=== PATIENT | female | born 1965 | race Hispanic/Latino ===

== ENCOUNTER 2017-01-10 19:22 | Emergency (ER) | payer OTHER ==
[~2017-01-10] VITALS: Ht 147.3 cm; Wt 83.1 kg
[2017-01-10 19:27] VITALS: BP 127/69; PULSE 109; RESP 18; O2SAT 99
--- NOTE | 2017-01-10 20:59 | ED.REPORT ---
HPI-General Illness Date of Service January 10, 2017 ED Provider: Frantz Rebollar MD 51 y/o with a hx of DM and HTN presents to the ED with multiple complaints, onset yesterday. The pt had a pituitary tumor removed on 01/03. She states she felt fine when she was discharged 6 days ago. Yesterday, she began experiencing severe headache (frontal lobe), neck pain, bilateral earache and throat pain. The pt also reports a fever of 100 degrees, climbing to 101.9 degrees, then called the nurse line and was referred to the ED. She states she used saline solution to clear her nose and removed a very small clot after she slightly blew her nose. The pt states the pain in her throat is the worst, exacerbated with swallowing. The pt rates her headache 8/10 which worsens with flexion of the neck.She also complains of eye pain upon palpation. Denies facial swelling. The pt took a Tylenol 6 hours ago and an Oxycodone 2 hours ago. Nursing Notes Stated Complaint: HEAD/THROAT PAIN,FEVER Chief Complaint: General Complaint Nursing Notes Reviewed: Yes (Ideal Binary not reconciled) Allergies: Coded Allergies: No Known Allergies (Unverified , 01/10/17) General Time Seen by MD: 20:58 Chief Complaint Headache Hx Obtained From: Patient Arrived By: Walk-in Sudden in Onset?: Yes Onset Occurred: Yesterday Symptom Duration: Since onset Location: : Head Quality: Painful Radiation: : Does not radiate Severity: Current: Moderate Severity: Maximum: Severe Recent Healthcare: Recent doctor visit Similar Sx Previous: No Past Medical History Past Medical History Notes: Neurosurgeon Dr. Paz ([facility]) Neuro research aide DR. 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 Physical Exam Vital Signs Vital Signs Date Time Temp Pulse Resp B/P Pulse Ox O2 Delivery O2 Flow Rate FiO2 01/10/17 19:27 38.2 109 18 127/69 99 Room Air Initial VS: Reviewed, Vital signs abnormal (fever) Cardiovascular: Regular rate & rhythm, Heart sounds normal, Intact distal pulses Abdomen / GI: Soft, Non-tender Extremities: Vascular intact, Neuro intact, No swelling, No tenderness Skin: Warm, Dry, No cyanosis General/Constitutional: Awake, Alert, Not toxic appearing Fatigue Not clinically septic Head / Eyes: Atraumatic, Normocephalic, PERRL Pt is wearing an eye patch due to diplopia. ENT: Atraumatic, Tympanic membs NL, Nose exam NL Nose: Negative: Discharge nasal bloody, Discharge nasal clear Trace eythema in the throat without exudate. Neck: Atraumatic, Full range of motion, No adenopathy Respiratory / Chest: Atraumatic, Breath sounds NL, Breath sounds = bilat, No respiratory distress, No rales, No rhonchi Neurologic: Oriented X3, Speech NL, No motor deficits, No sensory deficits Worse headache with neck flexion. Interpretation & Diagnostics Lab Results Interpretation Result Diagram: 01/10/17212901/10/172129 Test 01/10/17 21:30 01/10/17 22:29 White Blood Count 14.7th/mm3 (3.8-10.1) Red Blood Count 4.43mil/mm3 (3.90-5.20) Hemoglobin 12.5g/dL (12.0-15.6) Hematocrit 36.0% (35.0-46.0) Mean Corpuscular Volume 81.3fL (81-100) Mean Corpuscular Hemoglobin 28.2pg (27.0-35.0) Mean Corpuscular Hemoglobin Concent 34.7% (32.0-37.0) Red Cell Distribution Width 13.6% (12.3-15.4) Platelet Count 437bil/L (150-400) Neutrophils (%) (Auto) 79.7% (40-74) Lymphocytes (%) (Auto) 11.1% (14-46) Monocytes (%) (Auto) 7.1% (4-12) Eosinophils (%) (Auto) 1.7% (0-5) Basophils (%) (Auto) 0.1% (0-3) Sodium Level 139mEq/L (134-144) Potassium Level 4.3mEq/L (3.5-5.2) Chloride Level 97mEq/L (97-108) Carbon Dioxide Level 26mmol/L (18-29) Blood Urea Nitrogen 9mg/dL (6-24) Creatinine 0.34mg/dL (0.57-1.00) Estimat Glomerular Filtration Rate 293mL/min (>59) Glucose Level 166mg/dL (60-99) Lactic Acid Level 1.7mmol/L (0.4-2.0) Calcium Level 10.1mg/dL (8.5-10.1) Total Bilirubin 0.4mg/dL (0.0-1.2) Aspartate Amino Transf (AST/SGOT) 51U/L (0-50) Alanine Aminotransferase (ALT/SGPT) 59U/L (0-32) Alkaline Phosphatase 97U/L (25-150) Total Protein 8.6g/dL (6.4-8.4) Albumin 4.5g/dL (3.4-5.0) Urine Color Yellow (YELLOW) Urine Appearance Clear (CLEAR,HAZY) Urine pH 6.5 (5.0-8.0) Urine Specific [place] 1.005 (1.003-1.035) Urine Protein Negativemg/dL (NEG,TRACE) Urine Glucose (UA) Negativemg/dL (NEGATIVE) Urine Ketones Negativemg/dL (NEGATIVE) Urine Occult Blood Negative (NEGATIVE) Urine Nitrite Negative (NEGATIVE) Urine Bilirubin Negative (NEGATIVE) Urine Urobilinogen Normalmg/dL (NORMAL) Urine Leukocyte Esterase Negative (NEGATIVE) Urine RBC 0-2/hpf (0-2) Urine WBC 0-5/hpf (0-5) Urine Epithelial Cells Moderate/hpf (NONE-MOD) Urine Crystals None seen (NONE SEEN) Urine Bacteria Few/hpf (NONE-FEW) Urine Hyaline Casts None/lpf (NONE) Urine Granular Casts None seen (NONE SEEN) Urine Waxy Casts None seen (NONE SEEN) Urine Red Blood Cell Casts None seen (NONE SEEN) Urine White Blood Cell Casts None seen (NONE SEEN) Urine Mucus None seen (None Seen) Urine Trichomonas None seen (NONE SEEN) Urine Yeast None (NONE SEEN) Urinalysis Comment None Urine Culture Reflexed Not indicated Lab Results Interpretation: CBC moderate leukocytosis CMP normal including normal sodium, potassium Blood cultures 2 pending Strep negative UA negative Re-Eval/Medical Decision Med Decision/Clinical Course This is a 51-year-old female's one week status post trans-nasal/sinus removal of a pituitary adenoma at the [facility] he now presents with a fever, sore throat, and mild pressure headache and trace neck stiffness. She has low-grade fever, but does not appear toxic or severely ill. She has not had any drainage from the nose, the headache is not positional, she does not have lisy or definite meningismus. Her pharynx appears normal without lisy exudate or pathology. Voice is normal. She has no cervical adenopathy. Blood work was obtained given she is 1 week postop. I discussed the case with the [facility] on-call neurosurgeon. He reviewed the case and indicates that the type procedure she has does not really penetrate the CSF, she will be extremely low risk for meningitis-such that imaging and/or LP would be indicated only if there is a strong clinical suspicion, which there is not. The patient was observed for a number of hours and in fact felt better with supportive therapy. I discussed options-and given the current scenario the recommendations from neurosurgery is conservative management-empiric anabolic Selwyn recommended this time. Patient's couple discharged home with the understanding if she develops new, worsening progressive symptoms she will see her headache is worsening, she reveals no other symptoms really are U for meningismus her a postop complication she return directly to the emergency department. She and her partner entirely comfortable with this. She does have requested she has been given oxycodone for pain control at home and as previously found hydrocodone that works better for her, since receiving a prepack of hydrocodone for use. She is discharged in improved condition. Source of Hx: Old records Time of Eval: 23:40 Re-Evaluation/Progress Note: Rechecked pt. Discussed lab results and diagnosis. Informed the pt Dr. Ward recommends observation. She understands and agrees with the plan to discharge post observation. All questions addressed. Consultation : Consulted With: Neurology Call Returned at: 23:35 Hematology Oncology Consultant: Agrees with eval, Agrees with plan Note: Consulted Dr. Ward at . He reviewed the operation note and states there is low risk of meningitis. Imaging is not needed. Recommends the pt be observed and maybe discharged if she looks well. Differential Diagnosis: Positive: Diabetes mellitus, Negative: Abdominal pain, Acute coronary syndrome, Allergies, Neutropenia, Pneumonia, Seizure disorder Counseled Regarding: Diagnosis, Lab results, Need for follow-up, When/why to return to ED Discharge & Departure Primary Impression: Fever Fever type: unspecified Qualified Code: R50.9 - Fever, unspecified Additional Impression: Pharyngitis Pharyngitis/tonsillitis etiology: unspecified etiology Qualified Code: J02.9 - Acute pharyngitis, unspecified Disposition: Home Discharge Condition All VS Reviewed: Yes Additional Instructions: 1. A dangerous cause of the fever was not identified. We do not appreciate signs of a surgical infection at this time, and I discussed her case with the on -call surgeon [facility]. The procedure had his extremely low risk for meningitis, and additional imaging and lumbar puncture not indicated at this time. 2. A viral infection remains quite likely is the source of the symptoms. 3. Take hydrocodone/APAP 12/18/2024 one to 2 tabs up to every 4 hours for pain/ fever. Note this contains Tylenol, as well as a narcotic. You can use it instead of the oxycodone as you have indicated it works better for you. 4. Drink plenty of fluids and rest. 5. Additionally I recommended taking ibuprofen 400 mg 3 times a day for the next couple of days. 6. We expect symptoms to improve over the next few days. If they are not improving, if instead you have worsening symptoms-you need to return to the emergency department. 7. We did draw blood culture today and will call you if anything turns up in the medicine takes several days for results. You can call us at [phone] at any time for results. Referrals: Rody Andino (PCP) Scribe Attestation Portions of this note were transcribed by Filipe Crump. I, , personally performed the history, physical exam and medical decision-making;I reviewed and confirmed the accuracy of the information in the transcribed note. Signed by Leila Elise. 01/10/17 23:56 copies to: Rody Andino Matthew F MD January 10, 2017 20:59 Filipe Crump January 10, 2017 21:10
[2017-01-10] MEDS ORDERED: HYDROmorphone 0.5 mg/0.5 mL iSecure Syringe IVPUSH PRN (21:10)
[2017-01-10] MEDS ORDERED: Ondansetron 2 mg/mL 2 mL Inj IVPUSH ONE (21:10)
[2017-01-10 21:50] LABS: BASOPHILS % (AUTO) 0.1 % (0-3); EOSINOPHILS % (AUTO) 1.7 % (0-5); MONOCYTES % (AUTO) 7.1 % (4-12); Mean Corpuscular Hemoglobin 28.2 pg (27.0-35.0); Mean Corpuscular Volume 81.3 fL (81-100); NEUTROPHILS % (AUTO) 79.7 % (40-74); Platelet Count 437 bil/L (150-400)
[2017-01-10 22:39] LABS: APPEARANCE,URINE CLEAR (CLEAR,HAZY); COLOR,URINE YELLOW (YELLOW); OCCULT BLOOD,URINE NEGATIVE (NEGATIVE); PH,URINE 6.5 (5.0-8.0); UROBILINOGEN,URINE NORMAL (NORMAL)
[2017-01-10] MEDS ORDERED: _HYDROcodone/APAP 5-325 mg Tablet PO PRN (23:55)
[2017-01-11 00:18] VITALS: BP 131/80; PULSE 98; RESP 16; O2SAT 99
[2017-01-11 00:33] VITALS: BP 131/80; PULSE 98; RESP 16; O2SAT 99
== END 2017-01-11 00:33 | disposition home or self-care (01) ==
LOC: SED 19:22
DX: R50.9 Fever, unspecified (principal); J02.9 Acute pharyngitis, unspecified; M54.2 Cervicalgia; H92.03 Otalgia, bilateral; H57.10 Ocular pain, unspecified eye; E11.9 Type 2 diabetes mellitus without complications; E03.9 Hypothyroidism, unspecified; E78.5 Hyperlipidemia, unspecified; Z98.890 Other specified postprocedural states
CPT/HCPCS: 36415; 80053; 81000; 83605; 85025; 87040; 87880; 96374; 96375; 99284; J1170; J2405